=== PATIENT | female | born 1940 | race Caucasian/White ===

== ENCOUNTER → 2017-01-27 | Outpatient (CLI) | payer MEDICARE, OTHER ==
[~2017-01-27] MED LIST: ASCO10007; ASPI81TA2 PO; CALC1TAB; CITA20TA9 PO; FISH1CAP2 PO; IRON18TA; LACT1CAP14 PO; LEVO50TA11 PO; MAGN400C PO; MULT-933 PO; PROP60TA17; ROPI0.5T5; SIMV20TA6 PO; ZOLE5INF7
== END ==
LOC: WC.BC 12:25
DX: Z12.31 Encounter for screening mammogram for malignant neoplasm of breast (principal)
CPT/HCPCS: 77063; G0202